=== PATIENT | male | born 1980 | race Caucasian/White ===

== ENCOUNTER 2024-01-06 23:35 | Emergency (ER) | payer BC, SELFPAY ==
[2024-01-06 23:47] VITALS: BP 139/65
[2024-01-07 01:00] VITALS: BP 124/66
--- NOTE | 2024-01-07 01:28 | ED.GENMED ---
History of Present Illness
General
Chief Complaint: Overdose Unintentional
Source: patient
Exam Limitations: none
Time Seen by Provider: 01/07/24 01:10
Nursing documentation reviewed up to this point in time: agreed with
History of Present Illness
History of Present Illness:
43-year-old male presents with anxiety, states he took an edible that he buys from a dispensary uses it for sleep and joint pains had some work before without any issue, this may have been a new pack apparently, no other drugs or alcohol, 30 minutes
after taking developed a sense of nervousness dizziness nausea, EMS was called, now patient is resting comfortably feeling better
Past History
Past History
ED Past Medical History: GERD, Psychiatric (Anxiety), Other (PVCs) and Other (Achalasia)
ED Past Surgical History: Appendectomy
Social History
Tobacco: Non-smoker
Alcohol: Occasional
Drug: None
Personal: Single
Living: alone
Employment: Employed
Family History
Family History: Other
Review of Systems
Review of Systems
All Other Systems: Not applicable
Constitutional: Denies fever or fatigue
EENT: Reports no symptoms
Respiratory: Reports no symptoms
Cardiac: Reports palpitations; Denies chest pain
Neurological: Reports dizzy
Psychiatric: Reports anxiety
Phy Exam
Physical Exam
Physical Exam:
Physical Exam
General: 43-year-old male resting comfortably
Neck: No jaundice
Heart: s1/s2 regular rate and rhythm, no murmur. equal radial pulses.
Lungs: no acute respiratory distress. clear bilaterally
Abdomen: Not
Neuro: alert and oriented, slightly slow to respond, nonfocal neurologic exam,
Skin: no rash
Psychiatric: cooperative
Extremities: no edema.
Course
Vital Signs
Initial and Last Documented VS:
Initial Vital Signs
Temp Pulse Resp BP Pulse Ox
98.2 F 56 16 139/65 96
01/06/24 23:47 01/06/24 23:47 01/06/24 23:47 01/06/24 23:47 01/06/24 23:47
Last Documented Vital Signs
Temp Pulse Resp BP Pulse Ox
98.2 F 55 16 124/66 95
01/06/24 23:47 01/07/24 01:00 01/07/24 01:00 01/07/24 01:00 01/07/24 01:00
MDM/Problems Addressed
Differential Diagnosis Includes:
Cannabis intoxication cannabis side effect anxiety, primary psychiatric issue,
MDM/Problems Addressed:
Anxiety after using a marijuana edible
Chronic conditions affecting care: Psychiatric illness
Acute Exacerbation and/or Progression of Chronic Illness: Psychiatric illness
*Pulse Oximetry
Patient hypoxic: no
*Blow Mold Operator Interpretation
Rate: normal
Interpretation: normal
Heart Rate: 78
Rhythm: sinus
*Critical Care Note
Total Time (30-74mins, 75-104mins- exclusive of procedures): Not Applicable
Update Note
Update Note:
1:30 AM update patient already improved,
Will monitor until he is feeling better could consider some benzos if needed
2:40 AM patient appears well he is on his phone mental status appears clear family members able to drive him home encouraged to limit or stop using cannabis edibles
ED Attending Note
-
Portions of this chart may have been created with voice recognition software.� Occasional wrong word or��sound alike� substitutions may have occurred due to the inherent limitations of voice recognition software.
Discharge Plan
Departure
Patient Disposition: Home (Routine Discharge)
Date of Disposition: 01/07/24
Time of Disposition: 02:40
Patient with high blood pressure during this ER visit?: No
Condition: Good
Discharge Problem:
Accidental cannabis poisoning
Instructions: Accidental Overdose (DC)
Prescriptions:
No Action
multivitamin 1 EACH tablet
1 ea PO DAILY
famotidine 20 MG tablet
20 mg PO DAILY
dexlansoprazole [Kapidex] 60 MG capsule,biphase delayed releas
60 mg PO DAILY
Referrals:
NONE,* [Family Provider] -
Stand Alone Forms: Return to Work
Activity Restrictions/Additional Instructions:
Consider limiting or stopping using cannabis edibles
Interventions
Interventions:
*Risk Screen - Suicide Last Done: 01/06/24 23:47
*General Assessment Last Done: 01/06/24 23:47
*Neglect/Abuse Screening Last Done: 01/06/24 23:47
ED- Fall Risk Assessment Last Done: 01/06/24 23:47
*ED COVID-19 Vaccine History Last Done: 01/06/24 23:47
ED- Cardiac Assessment Last Done: 01/06/24 23:50
ED- Neurological Assessment Last Done: 01/06/24 23:50
ED-Psychological Assessment Last Done: 01/06/24 23:50
ED- Pulmonary Assessment Last Done: 01/06/24 23:50
Discharge Date and Time
Print Language: ANGOLAN
[2024-01-07 03:20] VITALS: BP 137/84
== END 2024-01-07 03:20 | disposition home or self-care (01) ==
LOC: EMR 23:35
PROVIDERS: EMERGENCY PHYSICIAN Emergency Medicine
DX: T40.711A Poisoning by cannabis, accidental (unintentional), initial encounter (principal); R42 Dizziness and giddiness; R45.0 Nervousness; R11.0 Nausea; R00.2 Palpitations; K21.9 Gastro-esophageal reflux disease without esophagitis; F41.9 Anxiety disorder, unspecified; F41.0 Panic disorder [episodic paroxysmal anxiety]
CPT/HCPCS: 99283

== ENCOUNTER → 2024-08-28 17:49 | Outpatient (REF) | payer BC, SELFPAY | LOC: RAD 17:49 | PROVIDERS: ATTENDING PHYSICIAN Family Medicine | DX: M25.569 Pain in unspecified knee (principal); K22.4 Dyskinesia of esophagus; F41.9 Anxiety disorder, unspecified; Z00.01 Encounter for general adult medical examination with abnormal findings; R73.9 Hyperglycemia, unspecified | CPT/HCPCS: 73564 ==